=== PATIENT | male | born 1980 | race Caucasian/White ===

== ENCOUNTER 2024-01-09 10:15 | Emergency (ER) | payer OTHER, SELFPAY ==
[2024-01-09 10:20] VITALS: BP 155/73
--- NOTE | 2024-01-09 10:25 | ED.GENMED ---
History of Present Illness
General
Chief Complaint: Chest Problem
Time Seen by Provider: 01/09/24 10:24
Travel History
Have you had any contact with someone who has COVID-19?: No
Do you have any symptoms of coronavirus? Fever > 100 degrees, chills, cough, shortness of breath, sore throat, loss of taste or smell, muscle aches, or headache?: No
History of Present Illness
History of Present Illness:
HPI: Patient presents with chest tightness started around 9 AM. He says his coworkers thought he looked unwell. He also reports a family history of premature coronary disease (older brother had 99% blockage in the coronary). The patient states
that he had a coronary calcium scan that was reassuring in April of last year. He is known to Dr. Yu. He has some ongoing discomfort so came in here for further evaluation. He has no significant shortness of breath. He states that his
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
EXAM:
GENERAL: Well appearing in no distress, thin athletic build
HEENT: Moist oral mucosa
CARDIOVASCULAR: No murmurs, bradycardic heart rate with regular rhythm, No chest wall tenderness
PULMONARY: No respiratory distress, breath sounds are clear and equal
ABDOMEN: Soft with no peritoneal signs, no tenderness
NEUROLOGIC: Excellent strength all extremities, no coordination deficits
PSYCHIATRIC: Appropriate mental status, normal insight and judgement
EXTREMITIES: Nontender, no edema, moves all extremities equally
SKIN: No rash, no lesions
ED COURSE:
10:50 AM: I initially evaluated patient
NUMBER AND COMPLEXITY OF PROBLEMS ADDRESSED AT THE ENCOUNTER
� Chronic conditions affecting care: Hyperlipidemia
� Acute Exacerbation and/or Progression of Chronic Illness: This is an acute problem but had a similar episode about a year
� Differential Diagnosis includes: Musculoskeletal chest wall pain, stress/anxiety, ACS less likely
AMOUNT AND/OR COMPLEXITY OF DATA TO BE REVIEWED AND ANALYZED
� I performed an independent evaluation of and my interpretation is:
EKG: Sinus 50, suspect early repolarization however the T wave is greater than the R wave in V3, the T wave that was higher than the R wave in V3 in 2022. Repeat EKG obtained around noon was unchanged in comparison to the first.
CT:
X-rays: Chest x-ray shows no acute abnormality
Laboratory Studies: Sodium slightly low at 132, 2 troponins have been negative, other chemistries unremarkable
Other:
� Review of other/old records: I did review old records that show a negative troponin in 2022
� Clinical information was obtained by an independent historian: None needed
� Prescriptions/Medications Considered but not given:
� Further testing considered but not performed:
RISK OF COMPLICATIONS AND/OR MORBIDITY OR MORTALITY OF PATIENT MANAGEMENT
� Social determinants of health affecting care: Lives at home
� Discussion with other providers:
� Escalation of care including admission/observation vs risk of discharge considered: The patient has some vague left-sided chest discomfort described as a tightness however has 2 troponins with an unchanged EKG. The patient is
very comfortable in appearance at time of discharge at 1:26 PM. He has no further chest discomfort. I did inform him of the slight low sodium he does tell me that he drinks a lot of water.
Past History
Past History
ED Past Medical History: None
ED Past Surgical History: Orthopedic
Social History
Tobacco: Non-smoker
Alcohol: Occasional
Drug: None
Personal:
Living: with family
Phy Exam
Physical Exam
Physical Exam:
See HPI
Course
Orders/Labs/Results
Orders:
Orders
01/09/24 10:16
ECG [Electrocardiogram (*1)] Urgent
Reason for Study: Chest Pain
EKG- Treatment ONCE
01/09/24 10:43
Complete Blood Count/With Diff Urgent
Comprehensive Metabolic Panel Urgent
Troponin I Urgent
01/09/24 10:58
CR Chest - 2 Views Urgent
Comment:
Reason For Exam: L CP
01/09/24 11:17
EKG- Treatment ONCE
01/09/24 12:00
EKG [Electrocardiogram (*1)] Urgent
Reason for Study: Chest Pain
01/09/24 12:21
Troponin I Urgent
Abnormal Lab Results
01/09/24
10:43
RBC 4.68 L 10^6/uL
(4.70-6.10)
Absolute Monos (auto) 0.8 H 10^3/uL
(0.1-0.6)
Monocytes % 13.2 H %
(1.7-9.3)
Sodium 132 L mmol/L
(135-145)
Glucose 102 H mg/dl
(70-99)
01/09/24 10:43
01/09/24 10:43
Vital Signs
Initial and Last Documented VS:
Initial Vital Signs
Temp Pulse Resp BP Pulse Ox
98.0 F 50 16 155/73 98
01/09/24 10:20 01/09/24 10:20 01/09/24 10:20 01/09/24 10:20 01/09/24 10:20
Last Documented Vital Signs
Temp Pulse Resp BP Pulse Ox
98.0 F 46 12 127/81 100
01/09/24 10:20 01/09/24 11:45 01/09/24 11:45 01/09/24 11:00 01/09/24 11:00
*Critical Care Note
Total Time (30-74mins, 75-104mins- exclusive of procedures): Not Applicable
ED Attending Note
-
Portions of this chart may have been created with voice recognition software.� Occasional wrong word or��sound alike� substitutions may have occurred due to the inherent limitations of voice recognition software.
Discharge Plan
Departure
Patient Disposition: Home (Routine Discharge)
Date of Disposition: 01/09/24
Time of Disposition: 13:26
Patient with high blood pressure during this ER visit?: Yes
Discharge Problem:
Chest pain
Instructions: Chest Pain DCA Follow Up
Prescriptions:
No Action
multivitamin [Multi-Day] 1 EACH tablet
1 ea PO DAILY
zinc 50 MG tablet
50 mg PO DAILY
Referrals:
Neel Yu MD [Family Provider] -
Activity Restrictions/Additional Instructions:
2 cardiac sets of blood work were normal. EKG is unchanged from prior. Your sodium was slightly low at 132, consider drinking a little less water. Chest x-ray was clear. I would like you to follow-up with your hide and skin colerer.
Interventions
Interventions:
*Risk Screen - Suicide Last Done: 01/09/24 11:10
*General Assessment Last Done: 01/09/24 11:10
*Neglect/Abuse Screening Last Done: 01/09/24 11:10
ED- Fall Risk Assessment Last Done: 01/09/24 11:10
*ED COVID-19 Vaccine History Last Done: 01/09/24 10:20
ED- Cardiac Assessment Last Done: 01/09/24 11:10
ED- Pulmonary Assessment Last Done: 01/09/24 11:10
[2024-01-09 10:52] VITALS: BP 132/82
[2024-01-09 11:00] VITALS: BP 127/81
[2024-01-09 11:04] LABS: % Basophils 1.4 % (0-2); % Eosinophils 2.9 % (0-6); % Immature Granulocytes 0.2 % (0-0.5); % Lymphocytes 35.9 % (20.5-51.1); % Monocytes 13.2 % (1.7-9.3); % Neutrophils 46.4 % (42.2-75.2); Absolute Basophils 0.1 10^3/uL (0-0.2); Absolute Eosinophils 0.2 10^3/uL (0-0.7); Absolute Lymphocytes 2.3 10^3/uL (1.2-3.4); Absolute Monocytes 0.8 10^3/uL (0.1-0.6); Absolute Neutrophils 2.9 10^3/uL (1.4-6.5); Hematocrit 39.2 % (39.0-52.0); Hemoglobin 13.7 g/dL (13.0-18.0); Mean Corp Hgb Conc. 34.9 g/dL (33.0-37.0); Mean Corpuscular Hgb 29.3 pg (27.0-31.0); Mean Corpuscular Volume 83.8 fL (80.0-94.0); Mean Platelet Volume 9.5 fL (7.4-10.4); Nucleated Red Blood Cells % 0 % (-); Platelet Count 214 10^3/uL (130-400); Red Blood Cell Count 4.68 10^6/uL (4.70-6.10); Red Cell Dist. Width 12.2 % (11.5-14.5); White Blood Cell Count 6.3 10^3/uL (4.8-10.8)
[2024-01-09 11:10] VITALS: BMI 24.4
[2024-01-09 11:28] LABS: ALT (SGPT) 28 U/L (0-50); AST (SGOT) 31 U/L (17-59); Albumin 4.1 g/dl (3.5-5.0); Alkaline Phosphatase 51 U/L (38-126); Blood Urea Nitrogen 14 mg/dl (9-20); Carbon Dioxide 29 mmol/L (22-30); Chloride 100 mmol/L (98-107); Estimated Creatinine Clearance > 125 ml/min; Glucose 102 mg/dl (70-99); Potassium 4.3 mmol/L (3.5-5.1); Sodium 132 mmol/L (135-145); Total Bilirubin 0.6 mg/dl (0.2-1.3); Total Protein 6.7 g/dl (6.3-8.2); eGFR > 60.00
[2024-01-09 11:29] LABS: Troponin I < 0.012 ng/ml
[2024-01-09 12:54] LABS: Troponin I < 0.012 ng/ml
[2024-01-09 13:31] VITALS: BP 128/74
== END 2024-01-09 13:42 | disposition home or self-care (01) ==
LOC: EMR 10:15
PROVIDERS: EMERGENCY PHYSICIAN Emergency Medicine; FAMILY PHYSICIAN Family Medicine
DX: R07.89 Other chest pain (principal); E78.5 Hyperlipidemia, unspecified; R03.0 Elevated blood-pressure reading, without diagnosis of hypertension
CPT/HCPCS: 99285; 71046; 80053; 84484; 85025; 93005

== ENCOUNTER → 2024-05-04 12:56 | Outpatient (REF) | payer OTHER, SELFPAY | LOC: RCS 12:56 | PROVIDERS: ATTENDING PHYSICIAN Internal Medicine Cardiovascular Disease; FAMILY PHYSICIAN Family Medicine | DX: R07.9 Chest pain, unspecified (principal); Z82.49 Family history of ischemic heart disease and other diseases of the circulatory system; I25.10 Atherosclerotic heart disease of native coronary artery without angina pectoris | CPT/HCPCS: 93017 ==

== ENCOUNTER → 2024-06-09 13:01 | Outpatient (REF) | payer OTHER, SELFPAY | LOC: RCS 13:01 | PROVIDERS: ATTENDING PHYSICIAN Internal Medicine Cardiovascular Disease; FAMILY PHYSICIAN Family Medicine | DX: R07.9 Chest pain, unspecified (principal) | CPT/HCPCS: 93017; 93350 ==